=== PATIENT | male | born 1995 | race Caucasian/White ===

== ENCOUNTER 2017-08-07 05:53 | Emergency (ER) | payer OTHER ==
[~2017-08-07] VITALS: Ht 175.3 cm; Wt 82.0 kg
[2017-08-07] MEDS ORDERED: DERMABOND TOPICAL SKIN ADHESIVE TOP ONE (06:30)
--- NOTE | 2017-08-07 06:50 | REPUSA ---
CLINICAL HISTORY: Head trauma. TECHNIQUE: Multiple axial brain CT scan sections were obtained from base to vertex without contrast a dministration. COMMENTS: There is no evidence of skull fracture. The study shows normal configuration of sella turcica. There are no intra or extra-axial collections. There is no mass effect or midline shift. There is no evidence of hematoma formation. No hydrocephal us is present. No abnormal calcifications are noted. No significant abnormalities are seen either in the posterior fossa or supratentorial compartment. Mild chronic mucosal inflammatory changes in the right sphenoid sinus and ethmoid air cells. The remaining sinuses and mastoid air cells are patent. IMPRESSION: No evidence of acute intracranial pathology. No intracranial hemorrhage or skull fracture. Mild chronic mucosal inflammatory changes in the right sphenoid sinus and ethmoid air cells. Thank you for your kind referral of this patient.
[2017-08-07 07:04] VITALS: BP 144/52
== END 2017-08-07 07:05 | disposition home or self-care (01) ==
LOC: M ED 05:53
DX: S06.0X0A Concussion without loss of consciousness, initial encounter (principal); S01.81XA Laceration without foreign body of other part of head, initial encounter; W01.10XA Fall on same level from slipping, tripping and stumbling with subsequent striking against unspecified object, initial encounter; Y92.092 Bedroom in other non-institutional residence as the place of occurrence of the external cause; Y93.9 Activity, unspecified; Y99.9 Unspecified external cause status

== ENCOUNTER 2018-01-06 03:43 | Emergency (ER) | payer OTHER ==
[2018-01-06] MEDS: NS 1,000 ML IV (05:00)
[2018-01-06 05:15] LABS: BASO # 0.1 10^3/uL (0.0-0.2); BASO % 0.5 % (0.0-1.0); EOS # 0.2 10^3/uL (0.0-0.50); EOS % 1.6 % (0.0-3.0); HEMATOCRIT 44.3 % (42.0-52.0); IMMATURE GRANULOCYTE % 0.3 % (0-3.0); LYMPH # 2.7 10^3/uL (1.5-6.5); LYMPH % 25.7 % (24.0-44.0); MEAN CORPUSCULAR HEMOGLOBIN 31.3 pg (27.0-33.0); MEAN CORPUSCULAR HGB CONC 36.1 g/dl (32.0-36.5); MEAN CORPUSCULAR VOLUME 86.5 fl (80.0-96.0); MONO # 0.7 10^3/uL (0.0-0.8); MONO % 6.3 % (0.0-5.0); NEUTROPHILS # 6.8 10^3/uL (1.8-7.7); NEUTROPHILS % 65.6 % (36.0-66.0); PLATELET COUNT, AUTOMATED 272 10^3/uL (150-450); RED BLOOD COUNT 5.12 10^6/uL (4.30-6.10); RED CELL DISTRIBUTION WIDTH 11.8 % (11.5-14.5); WHITE BLOOD COUNT 10.4 10^3/uL (4.0-10.0)
[2018-01-06 05:46] LABS: ALBUMIN 4.4 GM/DL (3.2-5.2); ALBUMIN/GLOBULIN RATIO 1.52 (1.00-1.93); ALKALINE PHOSPHATASE 69 U/L (45-117); ALT/SGPT 84 U/L (12-78); ANION GAP 5 MEQ/L (8-16); AST/SGOT 35 U/L (7-37); BILIRUBIN,DIRECT 0.2 MG/DL (0.0-0.2); BILIRUBIN,TOTAL 0.7 MG/DL (0.2-1.0); BLOOD UREA NITROGEN 11 MG/DL (7-18); CALCIUM LEVEL 9.5 MG/DL (8.5-10.1); CARBON DIOXIDE LEVEL 31 MEQ/L (21-32); CHLORIDE LEVEL 107 MEQ/L (98-107); CPK CREATINE PHOSPHOKINASE 177 U/L (39-308); CREATININE FOR GFR 1.19 MG/DL (0.70-1.30); ETHYL ALCOHOL (ETHANOL) < 0.003 % (0.000-0.010); GLOMERULAR FILTRATION RATE > 60.0 (>60); GLUCOSE, FASTING 85 MG/DL (70-100); POTASSIUM SERUM 4.2 MEQ/L (3.5-5.1); SALICYLATE LEVEL < 1.7 MG/DL (5.0-30.0); SODIUM LEVEL 143 MEQ/L (136-145); TOTAL PROTEIN 7.3 GM/DL (6.4-8.2); TROPONIN I < 0.02 NG/ML (< 0.10)
[2018-01-06 05:51] LABS: ACETAMINOPHEN LEVEL < 2.0 UG/ML (10.0-30.0); CK-MB VALUE MASS 1.2 NG/ML (<3.6); MB/CK RELATIVE INDEX 0.67 (< OR =4); THYROID STIMULATING HORMONE 0.676 uIU/ML (0.358-3.740)
[2018-01-06 06:57] LABS: AMPHETAMINES LEVEL URINE NEGATIVE (NEGATIVE); BARBITURATES URINE NEGATIVE (NEGATIVE); BENZODIAZEPINES URINE NEGATIVE (NEGATIVE); CANNABINOIDS URINE NEGATIVE (NEGATIVE); COCAINE METABOLITE URINE NEGATIVE (NEGATIVE); METHADONE URINE NEGATIVE (NEGATIVE); OPIATES URINE NEGATIVE (NEGATIVE); PHENCYCLIDINE URINE NEGATIVE (NEGATIVE)
== END 2018-01-06 07:47 | disposition home or self-care (01) ==
LOC: M ED 03:43
DX: S06.0X9A Concussion with loss of consciousness of unspecified duration, initial encounter (principal); S00.83XA Contusion of other part of head, initial encounter; W06.XXXA Fall from bed, initial encounter; Y92.092 Bedroom in other non-institutional residence as the place of occurrence of the external cause
CPT/HCPCS: 70450

== ENCOUNTER 2018-06-24 07:51 | Emergency (ER) | payer OTHER ==
[2018-06-24] MEDS: MORPHINE 4 MG/ML 1ML VIAL/SYRINGE (J2270) IV ×3 (08:17→10:27)
[2018-06-24] MEDS: ONDANSETRON 4MG/2ML VIAL (J2405) IV (08:17)
[2018-06-24] MEDS: CLINDAMYCIN 600 MG in APPROPRIATE DILUENT 1 EA IV (09:53)
== END 2018-06-24 10:45 | disposition home or self-care (01) ==
LOC: M ED 07:51
DX: S02.66XA Fracture of symphysis of mandible, initial encounter for closed fracture (principal); Y93.83 Activity, rough housing and horseplay; Y92.89 Other specified places as the place of occurrence of the external cause
CPT/HCPCS: J2270

== ENCOUNTER 2018-06-24 16:54 | Emergency (ER) | payer OTHER ==
[2018-06-24] MEDS: ONDANSETRON 4 MG ORAL DISINTEGRATING TAB (Q0162 PER 1MG) PO (17:38)
== END 2018-06-24 17:45 | disposition home or self-care (01) ==
LOC: M ED 16:54
DX: S02.66 Fracture of symphysis of mandible (principal); R51 Headache; R40.0 Somnolence
CPT/HCPCS: Q0162

== ENCOUNTER 2018-06-30 13:17 | Day surgery (SDC) | payer OTHER ==
[2018-06-30] MEDS: LR 1,000 ML IV (14:02)
[2018-06-30] MEDS ORDERED: fentaNYL 100 MCG/2 ML INJECTION (J3010) As Ordered (14:43)
[2018-06-30] MEDS ORDERED: PROPOFOL 200 MG/20 ML VIAL As Ordered (14:43)
[2018-06-30] MEDS ORDERED: ROCURONIUM BROMIDE 50 MG/5 ML VIAL As Ordered ×3 (14:43→16:39)
[2018-06-30] MEDS ORDERED: MIDAZOLAM INJ 2 MG/2 ML VIAL (J2250) As Ordered (14:43)
[2018-06-30] MEDS ORDERED: LIDOCAINE 2% INJ 100 MG/5 ML SDV (FOR ANES.) As Ordered (14:43)
[2018-06-30] MEDS: OXYMETAZOLINE NASAL SPRAY (AFRIN) As Ordered (15:48)
[2018-06-30] MEDS: dexameTHASONE 4 MG/ML 1ML VIAL (J1100) IV (15:55)
[2018-06-30] MEDS: LIDOCAINE 2% W/ EPINEPHRINE 1.7 ML DENTAL INJ As Ordered (16:09)
[2018-06-30] MEDS ORDERED: dexameTHASONE 4 MG/ML 1ML VIAL (J1100) As Ordered ×3 (16:09)
[2018-06-30] MEDS: CHLORHEXIDINE ORAL RINSE 0.12%/15ML 120ML BOTTLE As Ordered (16:11)
[2018-06-30] MEDS ORDERED: HYDROmorphone HCL 2 MG/ML 1ML VIAL (J1170) As Ordered (16:21)
[2018-06-30] MEDS ORDERED: ONDANSETRON 4MG/2ML VIAL (J2405) As Ordered (18:52)
[2018-06-30] MEDS ORDERED: SUGAMMADEX SODIUM 500 MG/5 ML VIAL (BRIDION) As Ordered (19:05)
[2018-06-30] MEDS ORDERED: ONDANSETRON 4MG/2ML VIAL (J2405) IV (19:45)
[2018-06-30] MEDS ORDERED: LR 1,000 ML IV (19:45)
[2018-06-30] MEDS ORDERED: fentaNYL 100 MCG/2 ML INJECTION (J3010) IV (19:45)
[2018-06-30] MEDS: MORPHINE 10 MG/ML 1ML VIAL (J2270) IV ×2 (19:53→19:58)
== END 2018-06-30 21:55 | disposition home or self-care (01) ==
LOC: M SDC 13:17
DX: S02.66XB Fracture of symphysis of mandible, initial encounter for open fracture (principal); W20.8XXA Other cause of strike by thrown, projected or falling object, initial encounter; Y93.B3 Activity, free weights; Y92.89 Other specified places as the place of occurrence of the external cause; Y99.8 Other external cause status; Z72.0 Tobacco use
CPT/HCPCS: D7730

== ENCOUNTER 2018-10-07 01:56 | Emergency (ER) | payer OTHER ==
[~2018-10-07] VITALS: Ht 175.3 cm; Wt 79.5 kg
[~2018-10-07 01:56] MED LIST: CLIN150C14 PO; HYDR1SOL PO; IBUP1TAB7 PO; METH4TAB28 PO; OXYC1TAB23 PO; PERC5TAB12 PO; ZOFR4TAB14 PO
[2018-10-07 01:57] VITALS: BP 138/92
[2018-10-07] MEDS ORDERED: LIDOCAINE W/EPINEPHRINE 1% 20ML VIAL SC ONE (03:15)
--- NOTE | 2018-10-07 08:06 | REP ---
Clinical: Trauma. Technique: AP, lateral, bilateral oblique views right hand . Findings: Soft tissue laceration noted over the fifth metacarpal bone without foreign body. The osseous structures and joint spaces are intact and normal. There is no evidence for acute fracture or dislocation. Impression: Laceration noted. No subcutaneous emphysema or foreign body. No acute fracture or dislocation. Electronically Signed by Domo Gregg MD 10/07/2018 07:58 A
== END 2018-10-07 04:02 | disposition home or self-care (01) ==
LOC: M ED 01:56
DX: S61.411A Laceration without foreign body of right hand, initial encounter (principal); W22.09XA Striking against other stationary object, initial encounter; Y92.410 Unspecified street and highway as the place of occurrence of the external cause